=== PATIENT | male | born 1960 | race Caucasian/White ===

== ENCOUNTER 2019-01-02 07:20 | Day surgery (SDC) | payer BC ==
[~2019-01-02] VITALS: Ht 177.8 cm; Wt 106.6 kg
[~2019-01-02 07:20] MED LIST: ASPI81TA85 PO; ATOR40TA75 PO; DIGO0.12 PO; DILT1CAP46 PO; FLOM0.4C39 PO; FLON1SPR; INCR1INH INH; MULTCAP PO; NAPR-885 PO; PANT40TA3 PO; SILD50TA PO; TIZA4TAB4 PO
[2019-01-02] MEDS ORDERED: NS 1,000 ML IV ONE (08:15)
[2019-01-02] MEDS ORDERED: PROPOFOL 200 MG/20 ML VIAL As Ordered ONE ×2 (08:39→09:10)
--- NOTE | 2019-01-02 09:02 | ROOR ---
Patient Name: Davey Simpson Procedure Date: 01/02/2019 8:36 AM Date of : 1960 Age: 58 Room: [facility] Gender: Male Note Status: Finalized Procedure: Colonoscopy Indications: High risk colon cancer surveillance: Personal history of colonic polyps, Last colonoscopy: September 2013 Providers: Saleem HALL MD Referring MD: Anson Juan MD Requesting Provider: Medicines: Monitored Anesthesia Care Complications: No immediate complications. Procedure: Pre-Anesthesia Assessment: - The heart rate, respiratory rate, oxygen saturations, blood pressure, adequacy of pulmonary ventilation, and response to care were monitored throughout the procedure. The Colonoscope was introduced through the anus and advanced to the terminal ileum, with identification of the appendiceal orifice and IC valve. The colonoscopy was performed without difficulty. The patient tolerated the procedure well. The quality of the bowel preparation was good. Findings: The perianal and digital rectal examinations were normal. Retroflexion in the right colon was performed. Small Internal Hemorrhoids. The entire examined colon appeared normal on direct and retroflexion views. Impression: - Small Internal Hemorrhoids. - The entire colon is normal on direct and retroflexion views. - No specimens collected. Recommendation: - Repeat colonoscopy in 10 years for screening purposes. Saleem Hall MD Saleem HALL MD 01/02/2019 9:01:49 AM Electronically signed by Saleem HALL MD Number of Addenda: 0 Note Initiated On: 01/02/2019 8:36 AM Estimated Blood Loss: Estimated blood loss: none.
[2019-01-02 09:18] VITALS: BP 126/81
== END 2019-01-02 09:21 | disposition home or self-care (01) ==
LOC: M OPP 07:20
PROVIDERS: ATTEND Internal Medicine Gastroenterology
DX: Z12.11 Encounter for screening for malignant neoplasm of colon (principal); Z86.010 Personal history of colon polyps; K64.8 Other hemorrhoids; Z79.82 Long term (current) use of aspirin; Z79.899 Other long term (current) drug therapy